=== PATIENT | male | born 1965 ===

== ENCOUNTER 2018-04-13 10:04 | Observation (INO) | payer OTHER ==
--- NOTE | 2018-04-13 10:46 | ED PDOC ---
HPI: Chest Pain Time Seen by Provider: 04/13/18 10:30 Chief Complaint (Nursing): Chest Pain History Per: Patient Onset/Duration Of Symptoms: Days (1) Current Symptoms Are (Timing): Still Present Severity: Mild Associated Symptoms: Nausea, Diaphoresis Additional Complaint(s): Chest pain with radiation to left shoulder assoc with nausea and diaphoresis this AM while going to bus. Denies SOB. Also had epigastric pain with reflux sxs.Denies vomiting Past Medical History Vital Signs: Last Vital Signs Temp 97 F L 04/13/18 10:18 Pulse 76 04/13/18 10:18 Resp 16 04/13/18 10:18 BP 148/76 04/13/18 10:18 Pulse Ox 99 04/13/18 12:38 - Medical History PMH: CAD, Diabetes - Family History Family History: States: Unknown Family Hx - Allergies Allergies/Adverse Reactions: Allergies Allergy/AdvReac Type Severity Reaction Status Date / Time No Known Allergies Allergy Verified 04/13/18 10:18 Review of Systems ROS Statement: Except As Marked, All Systems Reviewed And Found Negative Constitutional: Positive for: Sweats Cardiovascular: Positive for: Chest Pain Gastrointestinal: Positive for: Nausea, Abdominal Pain Physical Exam - Reviewed Nursing Documentation Reviewed: Yes Vital Signs Reviewed: Yes - Physical Exam Appears: Positive for: Non-toxic, No Acute Distress Head Exam: Positive for: ATRAUMATIC, NORMAL INSPECTION, NORMOCEPHALIC Skin: Positive for: Normal Color, Warm, DRY Eye Exam: Positive for: EOMI, Normal appearance, PERRL ENT: Positive for: Normal ENT Inspection Neck: Positive for: Normal, Painless ROM Cardiovascular/Chest: Positive for: Regular Rate, Rhythm Respiratory: Positive for: CNT, Normal Breath Sounds Gastrointestinal/Abdominal: Positive for: Normal Exam, Soft. Negative for: Tenderness Back: Positive for: Normal Inspection Extremity: Positive for: Normal ROM Neurologic/Psych: Positive for: Alert, Oriented - Laboratory Results Result Diagrams: 04/13/18 10:50 04/13/18 10:50 - ECG O2 Sat by Pulse Oximetry: 99 Disposition - Clinical Impression Clinical Impression: Chest pain - Patient ED Disposition Is Patient to be Admitted: Yes - Disposition Disposition Time: 12:46 Condition: FAIR Forms: [employer] (Malay) - Pt Status Changed To: Hospital Disposition Of: Observation - POA Present On Arrival: None
[2018-04-13 10:57] LABS: BASO % 0.2 % (0.0-2.0); EOS # 0.1 K/uL (0.0-0.7); EOS % 0.6 % (0.0-4.0); HEMOGLOBIN 16.1 g/dL (12.0-18.0); LYMPH # 0.5 K/uL (1.0-4.3); MEAN CELL VOLUME 89.9 fl (80.0-94.0); MEAN CORPUSCULAR HEMOGLOBIN 30.4 pg (27.0-31.0); MEAN CORPUSCULAR HGB CONC 33.8 g/dL (33.0-37.0); MEAN PLATELET VOLUME 8.5 fl (7.2-11.7); MONO # 0.6 K/uL (0.0-0.8); MONO % 4.4 % (0.0-10.0); NEUT # 11.5 K/uL (1.8-7.0); NEUT % 90.8 % (50.0-75.0); NRBC % 0.3 % (0.0-0.0); PLATELET COUNT 219 K/uL (130-400); RBC 5.31 Mil/uL (4.40-5.90); RED CELL DISTRIBUTION WIDTH 13.1 % (11.5-14.5); WHITE BLOOD COUNT 12.7 K/uL (4.8-10.8)
[2018-04-13 11:08] LABS: ALB/GLOB RATIO 1.2 (1.0-2.1); ALBUMIN 4.3 g/dL (3.5-5.0); ALT/SGPT 43 U/L (21-72); AST/SGOT 34 U/L (17-59); BLOOD UREA NITROGEN 25 mg/dl (9-20); CALCIUM 9.2 mg/dL (8.4-10.2); GFR NON-AFRICAN AMERICAN > 60
--- NOTE | 2018-04-13 11:12 | RAD ---
Date of service: 04/13/2018 HISTORY: Chest pain COMPARISON: No prior. TECHNIQUE: Chest PA and lateral FINDINGS: LUNGS: Poor inspiration with low lung volumes, crowded bronchovascular markings and minor bibasilar atelectasis. Mild biapical pleural thickening PLEURA: No significant pleural effusion identified. No pneumothorax apparent. CARDIOVASCULAR: Normal. OSSEOUS STRUCTURES: No significant abnormalities. VISUALIZED UPPER ABDOMEN: Normal. OTHER FINDINGS: None. IMPRESSION: Poor inspiration with low lung volumes, crowded bronchovascular markings and minor bibasilar atelectasis. The the the Mild biapical pleural thickening
[2018-04-13] MEDS ORDERED: Alum-Mag Hydrox-Simethicone Susp (30 mL) PO ONE (13:42)
[2018-04-13 14:00] LABS: LYMPHOCYTE 8 % (20-50); MONOCYTE 5 % (0-10); NEUTROPHIL 87 % (42-75); TOTAL CELLS COUNTED 100
[2018-04-13 14:01] LABS: PLATELET ESTIMATE NORMAL (NORMAL)
[2018-04-13] MEDS ORDERED: Pantoprazole 40 mg EC Tab PO ONE (14:08)
--- NOTE | 2018-04-13 14:08 | CP.PCM.HP ---
History of Present Illness - History of Present Illness History of Present Illness: CC: chest pain This is a 52 yo male with a past medical history significant for FL in 2007 ( admitted to [facility] in [place] at that time and did not have cath at this time), also with Type 2 DM on Metformin, hypercholesterolemia, presenting to the ED c/o 1 week of chest pain, substernal, feels like a pressure, radiating to the left shoulder and down the left arm, not radiating to the jaw, comes and goes, moderate in severity. 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 In the ED, the patient had a negative troponin and unremarkable EKG. Given his typical chest pain and history + for FL, the patient is being placed on tele obs to r/o FL. Of note he has a positive hx for GERD and had gastritis on upper endoscopy 6 years ago. Present on Admission - Present on Admission Any Indicators Present on Admission: No History of DVT/PE: No History of Uncontrolled Diabetes: No Review of Systems - Review of Systems Review of Systems: A 12 point review of systems was conducted and found to be negative other than what was mentioned in the HPI Past Patient History - Infectious Disease Hx of Infectious Diseases: None - Past Social History Smoking Status: Never Smoked - CARDIAC Hx Cardiac Disorders: Yes Hx Heart Attack: Yes Hx Hypercholesterolemia: Yes - PSYCHIATRIC Hx Substance Use: No Meds Allergies/Adverse Reactions: Allergies Allergy/AdvReac Type Severity Reaction Status Date / Time No Known Allergies Allergy Verified 04/13/18 10:18 Physical Exam - Additional Findings Additional findings: Physical exam: Constitutional- cooperative, awake, alert Head- NCAT, PERRL Eye- PERRL, EOMI, + conjunctival injection bilaterally ENT- normal exam, MMM. Neck- normal inspection, supple, no JVD Respiratory- CTAB, no wheezes rales rhonchi Cardiovascular- RRR, +S1, +S2 no MRG GI/Abdominal- normal bowel sounds, soft, no mass, no hsm Skin- warm, dry Extremities Exam- normal capillary refill, normal inspection Neurological Exam- alert, awake, oriented Psych- normal mood, normal affect Results - Vital Signs Recent Vital Signs: Last Vital Signs Temp 97 F L 04/13/18 10:18 Pulse 76 04/13/18 10:18 Resp 16 04/13/18 10:18 BP 148/76 04/13/18 10:18 Pulse Ox 99 04/13/18 12:47 - Labs Result Diagrams: 04/13/18 10:50 04/13/18 10:50 Labs: Laboratory Results - last 24 hr 04/13/18 04/13/18 04/13/18 10:23 10:50 10:50 WBC 12.7 H RBC 5.31 Hgb 16.1 Hct 47.8 MCV 89.9 MCH 30.4 MCHC 33.8 RDW 13.1 Plt Count 219 MPV 8.5 Neut % (Auto) 90.8 H Lymph % (Auto) 4.0 L [place] % (Auto) 4.4 Eos % (Auto) 0.6 Baso % (Auto) 0.2 Neut # (Auto) 11.5 H Lymph # (Auto) 0.5 L [place] # (Auto) 0.6 Eos # (Auto) 0.1 Baso # (Auto) 0.0 Neutrophils % (Manual) 87 H Lymphocytes % (Manual) 8 L Monocytes % (Manual) 5 Platelet Estimate Normal RBC Morphology Normal Sodium 138 Potassium 4.1 Chloride 108 H Carbon Dioxide 20 L Anion Gap 14 BUN 25 H Creatinine 1.0 Est GFR ( Amer) > 60 Est GFR (Non-Af Amer) > 60 POC Glucose (mg/dL) 136 H Random Glucose 153 H Calcium 9.2 Total Bilirubin 1.1 AST 34 ALT 43 Alkaline Phosphatase 78 Troponin I < 0.0120 Total Protein 7.8 Albumin 4.3 Globulin 3.6 Albumin/Globulin Ratio 1.2 Assessment & Plan - Assessment and Plan (Free Text) Plan: This is a 52 yo male with a past medical history significant for [place] in 2007 ( admitted to [facility] at that time and did not have cath at this time), also with Type 2 DM on Metformin, hypercholesterolemia, presenting to the ED c/o 1 week of chest pain, substernal, feels like a pressure, radiating to the left shoulder and down the left arm, not radiating to the jaw, comes and goes, moderate in severity. 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 In the ED, the patient had a negative troponin and unremarkable EKG. Given his typical chest pain and history + for FL, the patient is being placed on tele obs to r/o [place]. Of note he has a positive hx for GERD and had gastritis on upper endoscopy 6 years ago. 1) Typical chest pain, r/o ACS, also consider GERD as a cause - Place on tele/obs - Consultation with Dr. Devine, cardiology - F/u troponin trend - Lipid profile - HGA1C - Repeat EKG - Nitrostat PRN 2) Type 2 Diabetes mellitus - Hold Metformin - Lispro sliding scale with Accucheks AC+HS - HGA1C - Start low dose ACEI for renal and cardiac protection 3) Hypercholesterolemia - Continue Lipitor 4) GERD - Maalox PRN - Protonix 40 mg po daily 5) DVT prophylaxis - Heparin sq
[2018-04-13] MEDS ORDERED: Alum-Mag Hydrox-Simethicone Susp (30 mL) ONE (14:09)
[2018-04-13] MEDS: Pantoprazole 40 mg EC Tab PO SCH (14:10)
[2018-04-13 14:37] LABS: HDL CHOLESTEROL 59 MG/DL (30-70)
[2018-04-13 14:48] LABS: LDL CHOLESTEROL 100 mg/dL (0-129)
[2018-04-13] MEDS: Insulin Lispro (humaLOG) 100 Units/ml Inj SC SCH ×2 (17:05→23:05)
[2018-04-13 18:29] LABS: BARBITURATES, UR NEGATIVE (NEGATIVE); BENZODIAZEPINES, UR NEGATIVE (NEGATIVE); OPIATES, UR NEGATIVE (NEGATIVE); PHENCYCLIDINE, UR NEGATIVE (NEGATIVE)
[2018-04-14 05:03] VITALS: RESP 18
--- NOTE | 2018-04-14 08:09 | CP.PCM.CON ---
History of Present Illness - History of Present Illness History of Present Illness: 52 y/o male admitted with pains in both [place]pulders upper bilateral chest and back worse with movement of his arm and when he works Has had these pains x several weeks still goes to work with the pains No pains at present EKG: normal Sinus rhythm Troponin: neg PMH: NIDDM ? [place] 2007 No PMD Past Patient History - Infectious Disease Hx of Infectious Diseases: None - Past Medical History & Family History Past Medical History?: Yes - Past Social History Smoking Status: Former Smoker - CARDIAC Hx Cardiac Disorders: Yes (heart attack) Hx Heart Attack: Yes Hx Hypercholesterolemia: Yes - PULMONARY Hx Respiratory Disorders: No - NEUROLOGICAL Hx Neurological Disorder: No - HEENT Hx HEENT Problems: No Other/Comment: Left eye tumor - RENAL Hx Chronic Kidney Disease: No - ENDOCRINE/METABOLIC Hx Diabetes Mellitus Type 2: Yes - HEMATOLOGICAL/ONCOLOGICAL Hx Blood Disorders: No Hx AIDS: No Hx Human Immunodeficiency Virus (HIV): No - INTEGUMENTARY Hx Dermatological Problems: No - MUSCULOSKELETAL/RHEUMATOLOGICAL Hx Falls: No Hx Herniated Disk: Yes - GASTROINTESTINAL Hx Gastritis: Yes Hx Gastroesophageal Reflux: Yes Hx Hemorrhoids: Yes - GENITOURINARY/GYNECOLOGICAL Hx Genitourinary Disorders: No - PSYCHIATRIC Hx Psychophysiologic Disorder: No Hx Substance Use: No - SURGICAL HISTORY Hx Surgeries: Yes Other/Comment: Left arm sx - ANESTHESIA Hx Anesthesia: Yes Hx Anesthesia Reactions: No Hx Malignant Hyperthermia: No Has any member of the family had a problem w/ anesthesia?: No Meds Allergies/Adverse Reactions: Allergies Allergy/AdvReac Type Severity Reaction Status Date / Time No Known Allergies Allergy Verified 04/13/18 10:18 - Medications Medications: Current Medications Acetaminophen (Tylenol 325mg Tab) 650 mg PO Q6 PRN PRN Reason: Headache Last Admin: 04/13/18 17:59 Dose: 650 mg Aspirin (Aspirin) 325 mg PO DAILY [facility] Aspirin (Ecotrin) 81 mg PO DAILY [facility] Atorvastatin Calcium (Lipitor) 40 mg PO HS [facility]AL[facility] Last Admin: 04/13/18 23:05 Dose: 40 mg Heparin Sodium (Porcine) (Heparin) 5,000 units SC Q12 [facility] PRN Reason: Protocol Last Admin: 04/13/18 22:04 Dose: 5,000 units Insulin Human Lispro (Humalog) 0 units SC ACCU-CHECK [facility] PRN Reason: Protocol Last Admin: 04/13/18 23:05 Dose: Not Given Ketorolac Tromethamine (Toradol) 30 mg IVP Q6 PRN PRN Reason: Pain, moderate (4-7) Last Admin: 04/13/18 19:14 Dose: 30 mg Nitroglycerin (Nitrostat Sl Tab) 0.4 mg SL Q5M PRN PRN Reason: Pain, moderate (4-7) Last Admin: 04/13/18 19:10 Dose: 0.4 mg Ondansetron HCl (Zofran Odt) 4 mg PO Q8H PRN PRN Reason: Nausea/Vomiting Pantoprazole Sodium (Protonix Ec Tab) 40 mg PO DAILY [facility] Last Admin: 04/13/18 14:10 Dose: 40 mg Ranolazine (Ranexa) 500 mg PO BID [facility] Sitagliptin Phosphate (Januvia) 100 mg PO DAILY [facility] Results - Vital Signs Recent Vital Signs: Last Vital Signs Temp 98.2 F 04/14/18 05:02 Pulse 64 04/14/18 05:02 Resp 18 04/14/18 05:02 BP 120/67 04/14/18 05:02 Pulse Ox 99 04/14/18 05:02 - Labs Result Diagrams: 04/13/18 10:50 04/13/18 10:50 Labs: Laboratory Results - last 24 hr 04/13/18 04/13/18 04/13/18 10:23 10:50 10:50 WBC 12.7 H RBC 5.31 Hgb 16.1 Hct 47.8 MCV 89.9 MCH 30.4 MCHC 33.8 RDW 13.1 Plt Count 219 MPV 8.5 Neut % (Auto) 90.8 H Lymph % (Auto) 4.0 L [place] % (Auto) 4.4 Eos % (Auto) 0.6 Baso % (Auto) 0.2 Neut # (Auto) 11.5 H Lymph # (Auto) 0.5 L [place] # (Auto) 0.6 Eos # (Auto) 0.1 Baso # (Auto) 0.0 Neutrophils % (Manual) 87 H Lymphocytes % (Manual) 8 L Monocytes % (Manual) 5 Platelet Estimate Normal RBC Morphology Normal Sodium 138 Potassium 4.1 Chloride 108 H Carbon Dioxide 20 L Anion Gap 14 BUN 25 H Creatinine 1.0 Est GFR ( Amer) > 60 Est GFR (Non-Af Amer) > 60 POC Glucose (mg/dL) 136 H Random Glucose 153 H Hemoglobin A1c Calcium 9.2 Total Bilirubin 1.1 AST 34 ALT 43 Alkaline Phosphatase 78 Troponin I < 0.0120 Total Protein 7.8 Albumin 4.3 Globulin 3.6 Albumin/Globulin Ratio 1.2 Triglycerides Cholesterol LDL Cholesterol Direct HDL Cholesterol Urine Opiates Screen Urine Methadone Screen Ur Barbiturates Screen Ur Phencyclidine Scrn Ur Amphetamines Screen U Benzodiazepines Scrn U Oth Cocaine Metabols U Cannabinoids Screen 04/13/18 04/13/18 04/13/18 14:22 14:22 17:03 WBC RBC Hgb Hct MCV MCH MCHC RDW Plt Count MPV Neut % (Auto) Lymph % (Auto) [place] % (Auto) Eos % (Auto) Baso % (Auto) Neut # (Auto) Lymph # (Auto) [place] # (Auto) Eos # (Auto) Baso # (Auto) Neutrophils % (Manual) Lymphocytes % (Manual) Monocytes % (Manual) Platelet Estimate RBC Morphology Sodium Potassium Chloride Carbon Dioxide Anion Gap BUN Creatinine Est GFR ( Amer) Est GFR (Non-Af Amer) POC Glucose (mg/dL) 134 H Random Glucose Hemoglobin A1c 7.8 H Calcium Total Bilirubin AST ALT Alkaline Phosphatase Troponin I Total Protein Albumin Globulin Albumin/Globulin Ratio Triglycerides 138 Cholesterol 192 LDL Cholesterol Direct 100 HDL Cholesterol 59 Urine Opiates Screen Urine Methadone Screen Ur Barbiturates Screen Ur Phencyclidine Scrn Ur Amphetamines Screen U Benzodiazepines Scrn U Oth Cocaine Metabols U Cannabinoids Screen 04/13/18 04/13/18 04/13/18 17:48 21:24 22:02 WBC RBC Hgb Hct MCV MCH MCHC RDW Plt Count MPV Neut % (Auto) Lymph % (Auto) [place] % (Auto) Eos % (Auto) Baso % (Auto) Neut # (Auto) Lymph # (Auto) [place] # (Auto) Eos # (Auto) Baso # (Auto) Neutrophils % (Manual) Lymphocytes % (Manual) Monocytes % (Manual) Platelet Estimate RBC Morphology Sodium Potassium Chloride Carbon Dioxide Anion Gap BUN Creatinine Est GFR ( Amer) Est GFR (Non-Af Amer) POC Glucose (mg/dL) 109 Random Glucose Hemoglobin A1c Calcium Total Bilirubin AST ALT Alkaline Phosphatase Troponin I < 0.0120 Total Protein Albumin Globulin Albumin/Globulin Ratio Triglycerides Cholesterol LDL Cholesterol Direct HDL Cholesterol Urine Opiates Screen Negative Urine Methadone Screen Negative Ur Barbiturates Screen Negative Ur Phencyclidine Scrn Negative Ur Amphetamines Screen Negative U Benzodiazepines Scrn Negative U Oth Cocaine Metabols Negative U Cannabinoids Screen Negative 04/14/18 04/14/18 04:20 05:21 WBC RBC Hgb Hct MCV MCH MCHC RDW Plt Count MPV Neut % (Auto) Lymph % (Auto) [place] % (Auto) Eos % (Auto) Baso % (Auto) Neut # (Auto) Lymph # (Auto) [place] # (Auto) Eos # (Auto) Baso # (Auto) Neutrophils % (Manual) Lymphocytes % (Manual) Monocytes % (Manual) Platelet Estimate RBC Morphology Sodium Potassium Chloride Carbon Dioxide Anion Gap BUN Creatinine Est GFR ( Amer) Est GFR (Non-Af Amer) POC Glucose (mg/dL) 170 H Random Glucose Hemoglobin A1c Calcium Total Bilirubin AST ALT Alkaline Phosphatase Troponin I < 0.0120 Total Protein Albumin Globulin Albumin/Globulin Ratio Triglycerides Cholesterol LDL Cholesterol Direct HDL Cholesterol Urine Opiates Screen Urine Methadone Screen Ur Barbiturates Screen Ur Phencyclidine Scrn Ur Amphetamines Screen U Benzodiazepines Scrn U Oth Cocaine Metabols U Cannabinoids Screen Assessment & Plan (1) Chest pain Assessment and Plan: Pains appear to be non cardiac in origin I have ordered an echo pt can be discharged after the echo is done for f/u as out patient Status: Acute (2) Type 2 diabetes mellitus without complications Status: Acute
[2018-04-14] MEDS ORDERED: Ranolazine 500 mg Extended Release Tablets PO SCH (09:00)
[2018-04-14] MEDS: Pantoprazole 40 mg EC Tab PO SCH (09:32)
[2018-04-14] MEDS: Insulin Lispro (humaLOG) 100 Units/ml Inj SC SCH ×2 (09:33→12:04)
--- NOTE | 2018-04-14 09:36 | CARD ---
APPROVED REPORT Date of service: 04/13/2018 <Conclusion> Sinus rhythm with marked sinus arrhythmia Possible Left atrial enlargement Borderline ECG
[2018-04-14 12:14] VITALS: BP 123/74; PULSE 67; TEMP 98; O2SAT 97
[2018-04-14] MEDS ORDERED: Alum-Mag Hydrox-Simethicone Susp (30 mL) PO PRN (13:12)
--- NOTE | 2018-04-14 13:28 | CP.PCM.DIS ---
Provider - Provider Date of Admission: 04/13/18 12:37 Attending physician: Christopher Luna DO Primary care physician: Service Consults: Dr. Devine Time Spent in preparation of Discharge (in minutes): 15 Hospital Course - Lab Results Lab Results: Most Recent Lab Values WBC 12.7 K/uL (4.8-10.8) H 04/13/18 10:50 RBC 5.31 Mil/uL (4.40-5.90) 04/13/18 10:50 Hgb 16.1 g/dL (12.0-18.0) 04/13/18 10:50 Hct 47.8 % (35.0-51.0) 04/13/18 10:50 MCV 89.9 fl (80.0-94.0) 04/13/18 10:50 MCH 30.4 pg (27.0-31.0) 04/13/18 10:50 MCHC 33.8 g/dL (33.0-37.0) 04/13/18 10:50 RDW 13.1 % (11.5-14.5) 04/13/18 10:50 Plt Count 219 K/uL (130-400) 04/13/18 10:50 MPV 8.5 fl (7.2-11.7) 04/13/18 10:50 Neut % (Auto) 90.8 % (50.0-75.0) H 04/13/18 10:50 Lymph % (Auto) 4.0 % (20.0-40.0) L 04/13/18 10:50 [place] % (Auto) 4.4 % (0.0-10.0) 04/13/18 10:50 Eos % (Auto) 0.6 % (0.0-4.0) 04/13/18 10:50 Baso % (Auto) 0.2 % (0.0-2.0) 04/13/18 10:50 Neut # (Auto) 11.5 K/uL (1.8-7.0) H 04/13/18 10:50 Lymph # (Auto) 0.5 K/uL (1.0-4.3) L 04/13/18 10:50 [place] # (Auto) 0.6 K/uL (0.0-0.8) 04/13/18 10:50 Eos # (Auto) 0.1 K/uL (0.0-0.7) 04/13/18 10:50 Baso # (Auto) 0.0 K/uL (0.0-0.2) 04/13/18 10:50 Neutrophils % (Manual) 87 % (42-75) H 04/13/18 10:50 Lymphocytes % (Manual) 8 % (20-50) L 04/13/18 10:50 Monocytes % (Manual) 5 % (0-10) 04/13/18 10:50 Platelet Estimate Normal (NORMAL) 04/13/18 10:50 RBC Morphology Normal (NORMAL) 04/13/18 10:50 Sodium 138 mmol/l (132-148) 04/13/18 10:50 Potassium 4.1 MMOL/L (3.6-5.0) 04/13/18 10:50 Chloride 108 mmol/L (98-107) H 04/13/18 10:50 Carbon Dioxide 20 mmol/L (22-30) L 04/13/18 10:50 Anion Gap 14 (10-20) 04/13/18 10:50 BUN 25 mg/dl (9-20) H 04/13/18 10:50 Creatinine 1.0 mg/dl (0.8-1.5) 04/13/18 10:50 Est GFR ( Amer) > 60 04/13/18 10:50 Est GFR (Non-Af Amer) > 60 04/13/18 10:50 POC Glucose (mg/dL) 140 mg/dL (65-110) H 04/14/18 10:56 Random Glucose 153 mg/dL (75-110) H 04/13/18 10:50 Hemoglobin A1c 7.8 % (4.2-6.5) H 04/13/18 14:22 Calcium 9.2 mg/dL (8.4-10.2) 04/13/18 10:50 Total Bilirubin 1.1 mg/dl (0.2-1.3) 04/13/18 10:50 AST 34 U/L (17-59) 04/13/18 10:50 ALT 43 U/L (21-72) 04/13/18 10:50 Alkaline Phosphatase 78 U/L (38-126) 04/13/18 10:50 Troponin I < 0.0120 ng/mL (0.00-0.120) 04/14/18 04:20 Total Protein 7.8 G/DL (6.3-8.2) 04/13/18 10:50 Albumin 4.3 g/dL (3.5-5.0) 04/13/18 10:50 Globulin 3.6 gm/dL (2.2-3.9) 04/13/18 10:50 Albumin/Globulin Ratio 1.2 (1.0-2.1) 04/13/18 10:50 Triglycerides 138 mg/DL (0-149) 04/13/18 14:22 Cholesterol 192 mg/dL (0-199) 04/13/18 14:22 LDL Cholesterol Direct 100 mg/dL (0-129) 04/13/18 14:22 HDL Cholesterol 59 MG/DL (30-70) 04/13/18 14:22 Urine Opiates Screen Negative (NEGATIVE) 04/13/18 17:48 Urine Methadone Screen Negative (NEGATIVE) 04/13/18 17:48 Ur Barbiturates Screen Negative (NEGATIVE) 04/13/18 17:48 Ur Phencyclidine Scrn Negative (NEGATIVE) 04/13/18 17:48 Ur Amphetamines Screen Negative (NEGATIVE) 04/13/18 17:48 U Benzodiazepines Scrn Negative (NEGATIVE) 04/13/18 17:48 U Oth Cocaine Metabols Negative (NEGATIVE) 04/13/18 17:48 U Cannabinoids Screen Negative (NEGATIVE) 04/13/18 17:48 - Hospital Course Hospital Course: This is a 52 yo male with a past medical history significant for [place] in 2007 ( admitted to [facility] at that time and did not have cath at this time), also with Type 2 DM on Metformin, hypercholesterolemia, presenting to the ED c/o 1 week of chest pain, substernal, feels like a pressure, radiating to the left shoulder and down the left arm, not radiating to the jaw, comes and goes, moderate in severity. 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 In the ED, the patient had a negative troponin and unremarkable EKG. Given his typical chest pain and history + for [place], the patient is being placed on tele obs to r/o DC. Of note he has a positive hx for GERD and had gastritis on upper endoscopy 6 years ago. 1) Chest pain, ACS ruled out, likely GERD given his hx - no acute events on tele - ok for discharge today; patient to f/u with primary MD and cardiology - Consultation with Dr. Devine, cardiology - Troponin negative x 3 - Echo performed, pt to follow up with results as per cardiology 2) Type 2 Diabetes mellitus - Continue Metformin and added Januvia given his hyperglycemia as outpatient - HGA1C 7.8 3) Hypercholesterolemia - Continue Lipitor 4) GERD - Maalox PRN - Protonix 40 mg po daily 5) DVT prophylaxis - Heparin sq while in house Discharge Exam - Head Exam Head Exam: ATRAUMATIC, NORMAL INSPECTION, NORMOCEPHALIC - Additional Findings Additional findings: Physical exam: Constitutional- cooperative, awake, alert Head- NCAT, PERRL Eye- PERRL, EOMI ENT- normal exam, MMM. Neck- normal inspection, supple, no JVD Respiratory- CTAB, no wheezes rales rhonchi Cardiovascular- RRR, +S1, +S2 no MRG GI/Abdominal- normal bowel sounds, soft, no mass, no hsm Skin- warm, dry Extremities Exam- normal capillary refill, normal inspection Neurological Exam- alert, awake, oriented Psych- normal mood, normal affect Discharge Plan - Discharge Medications Prescriptions: Aluminum Hydroxide/Magnesium [Maalox Plus 30 ml] 30 ml PO Q6 PRN #1 bottle PRN Reason: Indigestion / Heartburn Atorvastatin [Lipitor] 40 mg PO HS #30 tab metFORMIN [glucOPHAGE] 850 mg PO BID #60 tab Pantoprazole [Protonix EC Tab] 40 mg PO DAILY #30 ect SITagliptin [Januvia] 100 mg PO DAILY #30 tab - Follow Up Plan Condition: FAIR Disposition: HOME/ ROUTINE
--- NOTE | 2018-04-14 17:55 | CARD ---
APPROVED REPORT Date of service: 04/14/2018 EXAM: Two-dimensional and M-mode echocardiogram with Doppler and color Doppler. Other Information Quality : GoodRhythm : NSR INDICATION Chest Pain 2D DIMENSIONS IVSd1.10 (0.7-1.1cm)LVDd4.38 (3.9-5.9cm) LVOT Diameter2.18 (1.8-2.4cm)PWd1.05 (0.7-1.1cm) IVSs1.65 (0.8-1.2cm)LVDs2.60 (2.5-4.0cm) FS (%) 40.6 %PWs1.59 (0.8-1.2cm) M-Mode DIMENSIONS Left Atrium (MM)3.79 (2.5-4.0cm)IVSd1.15 (0.7-1.1cm) Aortic Root3.53 (2.2-3.7cm)LVDd4.71 (4.0-5.6cm) Aortic Cusp Exc.2.06 (1.5-2.0cm)PWd1.12 (0.7-1.1cm) IVSs1.62 cmFS (%) 39 % LVDs2.85 (2.0-3.8cm)PWs1.56 cm Aortic Valve AoV Peak Vqpiveqt320.0cm/sAoV VTI25.2cmAO Peak GR.7mmHg LVOT Peak Qovjlljg867.2cm/sLVOT VTI18.70cmAO Mean GR.4mmHg Mitral Valve MV E Vxhvdiev24.9cm/sMV DECEL [id number] A Solslsad06.2cm/s MV [id number]/A ratio1.2MVA (PHT)5.38cm2 TDI Lateral E' Peak V12.06cm/sMedial E' Peak V8.64cm/sE/Lateral E'5.7 E/Medial E'8.0 Pulmonary Valve PV Peak Pypjjqfx77.0cm/s LEFT VENTRICLE The left ventricle is normal size. There is normal left ventricular wall thickness. The left ventricular ejection fraction is within the normal range. The Ejection Fraction is 55%. No regional wall motion abnormalities noted.. The left ventricular diastolic function is normal. No left ventricle thrombus noted on this study. There is no ventricular septal defect visualized. There is no mass noted in the left ventricle. RIGHT VENTRICLE The right ventricle is normal size. There is normal right ventricular wall thickness. The right ventricular systolic function is normal. ATRIA The left atrium size is normal. The right atrium size is normal. The interatrial septum is intact with no evidence for an atrial septal defect. AORTIC VALVE The aortic valve is normal in structure. No aortic regurgitation is present. There is no aortic valvular stenosis. MITRAL VALVE The mitral valve is normal in structure. There is no mitral valve stenosis. There is trivial mitral valve regurgitation noted. TRICUSPID VALVE The tricuspid valve is normal in structure. There is no tricuspid valve regurgitation noted. PULMONIC VALVE The pulmonary valve is normal in structure. There is no pulmonic valvular regurgitation. GREAT VESSELS The aortic root is normal in size. The ascending aorta is normal in size. The pulmonary artery is normal. The IVC is normal in size and collapses >50% with inspiration. PERICARDIAL EFFUSION There is no pericardial effusion. <Conclusion> Essentially normal transthoracic echocardiogram. The Ejection Fraction is 55%.
== END 2018-04-14 14:41 | disposition home or self-care (01) ==
LOC: H.ER 10:04 → H.ERHOLD 12:37 → H.TEL 18:51
PROVIDERS: ADMIT Internal Medicine; ATTEND Internal Medicine
DX: K21.9 Gastro-esophageal reflux disease without esophagitis (principal); Z87.891 Personal history of nicotine dependence; K29.70 Gastritis, unspecified, without bleeding; R07.2 Precordial pain; Z79.84 Long term (current) use of oral hypoglycemic drugs; E78.00 Pure hypercholesterolemia, unspecified; I25.10 Atherosclerotic heart disease of native coronary artery without angina pectoris; I25.2 Old myocardial infarction
CPT/HCPCS: 36415; 71046; 80053; 80061; 80324; 80345; 80346; 80349; 80353; 80358; 80361; 82948; 83036; 83992; 84484; 85025; 93005; 93306; 99285; G0378; J1644; J1885

== ENCOUNTER 2018-08-14 16:55 | Emergency (ER) | payer SELFPAY ==
[2018-08-14 16:55] VITALS: BMI 25.1
[2018-08-14 18:08] VITALS: RESP 18; O2SAT 99
[2018-08-14] MEDS ORDERED: Sodium Chloride 0.9% 1,000 ML IV STA ×2 (18:22→20:23)
--- NOTE | 2018-08-14 19:00 | ED PDOC ---
HPI: Abdomen Time Seen by Provider: 08/14/18 18:13 Chief Complaint (Nursing): GI Problem Chief Complaint (Provider): Abd Pain History Per: Patient History/Exam Limitations: no limitations Onset/Duration Of Symptoms: Days (x4) Outside of [place] travel?: Yes Other Location:: [place] Current Symptoms Are (Timing): Still Present Context: Travel Additional Complaint(s): The pt is a 53 y/o male with a PMHx of HTN, CAD, and DM, who presents to the ED for evaluation of abd pain and cramping with diarrhea. The pt reports the onset of the pain began following his return trip from [facility] on 08/10/18, in which, he admits to drinking the tap water. Since, he has had small amounts of blood in stool, which was resolved, and has felt dehydrated. The pt denies experiencing vomiting, fever, dizziness, or headaches. Of note, pt reports Hx of RI in the past. PCP: [facility] Past Medical History Reviewed: Historical Data, Nursing Documentation, Vital Signs Vital Signs: Last Vital Signs Temp 98.5 F 08/14/18 18:06 Pulse 69 08/14/18 18:06 Resp 18 08/14/18 18:06 BP 111/78 08/14/18 18:06 Pulse Ox 99 08/14/18 18:06 MAGGIE Report Viewed: Yes - Medical History PMH: CAD, Diabetes, Gastritis, HTN, Hypercholesterolemia Denies: HIV, Chronic Kidney Disease - Surgical History Surgical History: No Surg Hx - Family History Family History: States: Unknown Family Hx - Social History Drugs: Denies - Home Medications Home Medications: Ambulatory Orders Medication Instructions Recorded Aluminum Hydroxide/Magnesium 30 ml PO Q6 PRN #1 bottle 04/14/18 [Maalox Plus 30 ml] Atorvastatin [Lipitor] 40 mg PO HS #30 tab 04/14/18 Pantoprazole [Protonix EC Tab] 40 mg PO DAILY #30 ect 04/14/18 SITagliptin [Januvia] 100 mg PO DAILY #30 tab 04/14/18 metFORMIN [glucOPHAGE] 850 mg PO BID #60 tab 04/14/18 - Allergies Allergies/Adverse Reactions: Allergies Allergy/AdvReac Type Severity Reaction Status Date / Time No Known Allergies Allergy Verified 08/14/18 18:06 Review of Systems ROS Statement: Except As Marked, All Systems Reviewed And Found Negative Constitutional: Positive for: Other (Dehydrated). Negative for: Fever Gastrointestinal: Positive for: Abdominal Pain (Cramps), Diarrhea, Hematochezia. Negative for: Vomiting Neurological: Negative for: Headache, Dizziness Physical Exam - Reviewed Nursing Documentation Reviewed: Yes Vital Signs Reviewed: Yes - Physical Exam Appears: Positive for: No Acute Distress Head Exam: Positive for: ATRAUMATIC, NORMAL INSPECTION, NORMOCEPHALIC Skin: Positive for: Dry (dehydrated) Eye Exam: Positive for: Normal appearance ENT: Positive for: Normal ENT Inspection Neck: Positive for: Normal Cardiovascular/Chest: Positive for: Regular Rate, Rhythm Respiratory: Positive for: Normal Breath Sounds Gastrointestinal/Abdominal: Positive for: Soft, Distended. Negative for: Tenderness Extremity: Positive for: Normal ROM (Upper/Lower) Neurologic/Psych: Positive for: Alert, Oriented - Laboratory Results Result Diagrams: 08/14/18 18:45 08/14/18 18:45 - ECG O2 Sat by Pulse Oximetry: 99 Medical Decision Making Medical Decision Making: Time: 1821 Impression: likely, traveler's diarrhea Plan: - Labs - Bentyl 10 mg PO - IV Fluids - Ova and Parasite - Stool Culture - C Diff Toxin A B - UA Time: 1899 --Patient is endorsed to Dr. Sesay, pending labs and re-evaluation. Scribe Attestation: Documented by Lincoln Stokes, acting as a scribe for Adonay Naik III, DO. Provider Scribe Attestation: All medical record entries made by the Scribe were at my direction and personally dictated by me. I have reviewed the chart and agree that the record accurately reflects my personal performance of the history, physical exam, medical decision making, and the department course for this patient. I have also personally directed, reviewed, and agree with the discharge instructions and disposition. Disposition - Disposition Forms: Meeps (Sami)
[2018-08-14 19:43] LABS: BASO # 0.1 K/uL (0.0-0.2); EOS # 0.1 K/uL (0.0-0.7); EOS % 1.1 % (0.0-4.0); HEMOGLOBIN 16.2 g/dL (12.0-18.0); LYMPH # 2.4 K/uL (1.0-4.3); LYMPH % 25.2 % (20.0-40.0); MEAN CELL VOLUME 90.6 fl (80.0-94.0); MEAN CORPUSCULAR HEMOGLOBIN 30.4 pg (27.0-31.0); MEAN CORPUSCULAR HGB CONC 33.6 g/dL (33.0-37.0); MEAN PLATELET VOLUME 8.3 fl (7.2-11.7); MONO # 1.1 K/uL (0.0-0.8); NEUT # 5.7 K/uL (1.8-7.0); NEUT % 60.7 % (50.0-75.0); NRBC % 0.2 % (0.0-0.0); RBC 5.33 Mil/uL (4.40-5.90); RED CELL DISTRIBUTION WIDTH 13.4 % (11.5-14.5); WHITE BLOOD COUNT 9.4 K/uL (4.8-10.8)
--- NOTE | 2018-08-14 19:50 | ED PDOC ---
- Laboratory Results Result Diagrams: 08/14/18 18:45 08/14/18 18:45 - ECG O2 Sat by Pulse Oximetry: 99 Medical Decision Making Medical Decision Making: Time: 1899 --Patient endorsed to provider by Dr. Naik. Patient presents with several days of diarrhea with recent travel to [facility]. Upon evaluation during endorsement, patient reports feeling dehydrated with recent weight loss. Pending labs. Will obtain stool culture if possible. Patient is receiving IV fluids. If (-) gross abnormality, plan to discharge patient with Rx for Cipro with PCP follow-up recommended. 21:45 Pt with normal labs. UA unremarkable. Stool culture negative. Pt to be discharged home with rx for ciproflagyl and will follow up with PMD. Return parameters discussed. --- Scribe Attestation: Documented by Bianka Ritchie, acting as a scribe for Dr. Gris Sesay. Provider Scribe Attestation: All medical record entries made by the Scribe were at my direction and personally dictated by me. I have reviewed the chart and agree that the record accurately reflects my personal performance of the history, physical exam, medical decision making, and the department course for this patient. I have also personally directed, reviewed, and agree with the discharge instructions and disposition. Disposition - Clinical Impression Clinical Impression: Travelers' diarrhea - Disposition Condition: IMPROVED Additional Instructions: Take medications as prescribed. Follow up with primary medical doctor in 3 to 5 days. Return to the emergency department if symptoms worsen or if new symptoms develop. Prescriptions: Ciprofloxacin 500 mg PO BID #10 ml Metronidazole [Flagyl] 500 mg PO BID #10 tablet Instructions: Diarrhea and Traveler's Diarrhea, Adult (DC) Forms: [employer] (Tamazight) Print Language: TURKISH
[2018-08-14 20:01] LABS: ALB/GLOB RATIO 1.1 (1.0-2.1); ALBUMIN 4.3 g/dL (3.5-5.0); ALT/SGPT 35 U/L (21-72); AST/SGOT 27 U/L (17-59); BLOOD UREA NITROGEN 17 mg/dl (9-20); CALCIUM 9.8 mg/dL (8.4-10.2); GFR NON-AFRICAN AMERICAN > 60; LIPASE 147 U/L (23-300)
[2018-08-14 20:35] LABS: URINE BILIRUBIN NEGATIVE (NEGATIVE); URINE BLOOD NEGATIVE (NEGATIVE); URINE CLARITY CLEAR (Clear); URINE COLOR STRAW (YELLOW); URINE GLUCOSE (UA) NEG (NEGATIVE); URINE LEUKOCYTE ESTERASE NEG Leu/uL (Negative); URINE PROTEIN NEGATIVE (NEGATIVE); URINE UROBILINOGEN 0.2-1.0 mg/dL (0.2-1.0)
[2018-08-14 22:17] VITALS: BP 142/78; PULSE 78; TEMP 98.3
== END 2018-08-14 22:15 | disposition home or self-care (01) ==
LOC: H.ER 16:55
DX: R19.7 Diarrhea, unspecified (principal); E11.9 Type 2 diabetes mellitus without complications; E78.00 Pure hypercholesterolemia, unspecified; I10 Essential (primary) hypertension; I25.10 Atherosclerotic heart disease of native coronary artery without angina pectoris; Z79.84 Long term (current) use of oral hypoglycemic drugs
CPT/HCPCS: 80053; 81003; 83690; 83735; 84100; 85025; 87045; 87177; 87209; 87230; 96360; 96361; 99284; J7030

== ENCOUNTER 2018-09-07 11:37 | Emergency (ER) | payer SELFPAY ==
[2018-09-07 11:37] VITALS: BMI 25.1
--- NOTE | 2018-09-07 13:32 | ED PDOC ---
Lower Extremity Pain/Injury Time Seen by Provider: 09/07/18 12:06 Chief Complaint (Nursing): Lower Extremity Problem/Injury Chief Complaint (Provider): Lower Extremity Problem/Injury History Per: Patient History/Exam Limitations: no limitations Onset/Duration Of Symptoms: Days (x14) Current Symptoms Are (Timing): Still Present Additional Complaint(s): Patient is a 53 y/o male with a PMHX of DM, CAD, CVA, HTN, gastritis, and hypercholesterolemia who presents to the ED for evaluation of bilateral foot pain for the past two weeks. Patient claims to have constant pain on the sole of his feet. Patient scales the severity of his pain as an 8/10. Patient states the pain worsens when he walks. 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 Patient denies CP, SOB, fever, leg swelling, difficulty breathing, and weakness or numbness. PCP: [facility] Past Medical History Reviewed: Historical Data, Nursing Documentation, Vital Signs Vital Signs: Last Vital Signs Temp 98.1 F 09/07/18 11:47 Pulse 62 09/07/18 11:47 Resp 15 09/07/18 11:47 BP 143/82 09/07/18 11:47 Pulse Ox 100 09/07/18 11:47 - Medical History PMH: CAD, CVA, Diabetes, Gastritis, HTN, Hypercholesterolemia Denies: HIV, Chronic Kidney Disease - Surgical History Surgical History: No Surg Hx - Family History Family History: States: Unknown Family Hx - Immunization History Hx Tetanus Toxoid Vaccination: Yes Hx Influenza Vaccination: No Hx Pneumococcal Vaccination: No - Home Medications Home Medications: Ambulatory Orders Medication Instructions Recorded Aluminum Hydroxide/Magnesium 30 ml PO Q6 PRN #1 bottle 04/14/18 [Maalox Plus 30 ml] Atorvastatin [Lipitor] 40 mg PO HS #30 tab 04/14/18 Pantoprazole [Protonix EC Tab] 40 mg PO DAILY #30 ect 04/14/18 SITagliptin [Januvia] 100 mg PO DAILY #30 tab 04/14/18 metFORMIN [glucOPHAGE] 850 mg PO BID #60 tab 04/14/18 Ciprofloxacin 500 mg PO BID #10 ml 08/14/18 Metronidazole [Flagyl] 500 mg PO BID #10 tablet 08/14/18 Naproxen 500 mg PO BID #30 tab 09/07/18 - Allergies Allergies/Adverse Reactions: Allergies Allergy/AdvReac Type Severity Reaction Status Date / Time No Known Allergies Allergy Verified 08/14/18 18:06 Review of Systems ROS Statement: Except As Marked, All Systems Reviewed And Found Negative Constitutional: Negative for: Fever Cardiovascular: Negative for: Chest Pain Respiratory: Negative for: Shortness of Breath Musculoskeletal: Positive for: Foot Pain. Negative for: Leg Pain (or swelling) Neurological: Negative for: Weakness, Numbness Physical Exam - Reviewed Nursing Documentation Reviewed: Yes Vital Signs Reviewed: Yes - Physical Exam Appears: Positive for: Non-toxic, No Acute Distress Head Exam: Positive for: ATRAUMATIC, NORMAL INSPECTION, NORMOCEPHALIC Skin: Positive for: Normal Color, Warm, Dry Eye Exam: Positive for: EOMI, Normal appearance, PERRL Neck: Positive for: Normal, Painless ROM, Supple Cardiovascular/Chest: Positive for: Regular Rate, Rhythm. Negative for: Murmur Respiratory: Positive for: Normal Breath Sounds. Negative for: Respiratory Distress Back: Positive for: Normal Inspection. Negative for: L CVA Tenderness, R CVA Tenderness, Vertebral Tenderness Extremity: Positive for: Normal ROM. Negative for: Pedal Edema, Deformity, Other (Focal Exam: Normal Feet) Neurologic/Psych: Positive for: Alert, Oriented. Negative for: Motor/Sensory Deficits - ECG O2 Sat by Pulse Oximetry: 100 (RA) Pulse Ox Interpretation: Normal - Progress Re-evaluation Time: 14:07 Condition: Re-examined, Improved Medical Decision Making Medical Decision Making: Time: 1238 Impression: Bilateral Foot Pain DDx includes but not limited to plantar fasciitis and diabetic nueropathy. Plan: Glucose, POC Toradol 30 mg IM Patient instructed to wear shoes with appropriate supports. Followup with podiatry. --------- Scribe Attestation: Documented by Lincoln Stokes, acting as a scribe for Jorge Luis Parson MD. Provider Scribe Attestation: All medical record entries made by the Scribe were at my direction and personally dictated by me. I have reviewed the chart and agree that the record accurately reflects my personal performance of the history, physical exam, medical decision making, and the department course for this patient. I have also personally directed, reviewed, and agree with the discharge instructions and disposition. Disposition - Clinical Impression Clinical Impression: Pain in both feet - Patient ED Disposition Is Patient to be Admitted: No Doctor Will See Patient In The: Office Counseled Patient/Family Regarding: Studies Performed, Diagnosis, Need For Followup - Disposition Referrals: [facility] [Outside] Podiatry Clinic [Outside] Disposition: Routine/Home Disposition Time: 14:11 Condition: GOOD Additional Instructions: MILDRED THIBODEAUX, thank you for letting us take care of you today. Your provider was Jorge Luis Parson MD and you were treated for B/L FOOT PAIN. The emergency medical care you received today was directed at your acute symptoms. If you were prescribed any medication, please fill it and take as directed. It may take several days for your symptoms to resolve. Return to the Emergency Department if your symptoms worsen, do not improve, or if you have any other problems. Please contact your doctor or call one of the physicians/clinics you have been referred to that are listed on the Patient Visit Information form that is included in your discharge packet. Bring any paperwork you were given at discharge with you along with any medications you are taking to your follow up visit. Our treatment cannot replace ongoing medical care by a primary care pr ovider outside of the emergency department. [facility]. If you had an X-Ray or CT scan: A Radiologist will review the ED reading if any change in treatment is needed we will contact you. If you had a blood, urine, or wound culture: It will take several days for the results, if any change in treatment is needed we will contact you. If you had an STI test: It will take 48 hours for the results. Please call after 1 week if you have not heard back. Prescriptions: Naproxen 500 mg PO BID #30 tab Instructions: Heel Pain (Caused by Plantar Fasciitis) Print Language: GREENLANDIC
[2018-09-07 14:23] VITALS: BP 135/78; PULSE 77; RESP 20; TEMP 98.8; O2SAT 97
== END 2018-09-07 14:22 | disposition home or self-care (01) ==
LOC: H.ER 11:37
DX: M79.673 Pain in unspecified foot (principal)
CPT/HCPCS: 82948; 96372; 99284; J1885

== ENCOUNTER 2018-12-04 22:28 | Emergency (ER) | payer SELFPAY ==
[2018-12-04 22:29] VITALS: BMI 25.1
[2018-12-04 23:08] VITALS: BP 141/74; RESP 17; TEMP 98; O2SAT 98
--- NOTE | 2018-12-05 01:26 | ED PDOC ---
History of Present Illness History of Present Illness: 53 y/o male with a PMHx of HTN and DM presents to the ED for evaluation of diffuse body aches associated with a mild cough and chest pain. Patient reports his is currently being evaluated in the ER for asthma exacerbation. Otherwise, patient denies fever. Patient notes of taking Motrin for pain yesterday. PMD: no provider HPI: Influenza Time Seen by Provider: 12/05/18 00:31 Chief Complaint: Flu-like Symptoms Chief Complaint (Provider): Flu-like Symptoms History Per: Patient Exam Limitations: no limitations Onset/Duration Of Symptoms: Days Sick Contacts (Context): Family Member(s) ( with asthma exacerbation) Past Medical History Reviewed: Historical Data, Nursing Documentation, Vital Signs Vital Signs: Last Vital Signs Temp 98 F 12/04/18 23:05 Pulse 63 12/04/18 23:05 Resp 17 12/04/18 23:05 BP 141/74 12/04/18 23:05 Pulse Ox 98 12/04/18 23:05 - Medical History PMH: CAD, CVA, Diabetes, Gastritis, HTN, Hypercholesterolemia Denies: HIV, Chronic Kidney Disease - Surgical History Surgical History: No Surg Hx - Family History Family History: States: Unknown Family Hx - Immunization History Hx Tetanus Toxoid Vaccination: Yes Hx Influenza Vaccination: No Hx Pneumococcal Vaccination: No - Home Medications Home Medications: Ambulatory Orders Medication Instructions Recorded Aluminum Hydroxide/Magnesium 30 ml PO Q6 PRN #1 bottle 04/14/18 [Maalox Plus 30 ml] Atorvastatin [Lipitor] 40 mg PO HS #30 tab 04/14/18 Pantoprazole [Protonix EC Tab] 40 mg PO DAILY #30 ect 04/14/18 SITagliptin [Januvia] 100 mg PO DAILY #30 tab 04/14/18 metFORMIN [glucOPHAGE] 850 mg PO BID #60 tab 04/14/18 Ciprofloxacin 500 mg PO BID #10 ml 08/14/18 Metronidazole [Flagyl] 500 mg PO BID #10 tablet 08/14/18 Naproxen 500 mg PO BID #30 tab 12/05/18 - Allergies Allergies/Adverse Reactions: Allergies Allergy/AdvReac Type Severity Reaction Status Date / Time No Known Allergies Allergy Verified 12/04/18 23:07 Review of Systems ROS Statement: Except As Marked, All Systems Reviewed And Found Negative Constitutional: Positive for: Other (diffuse myalgia). Negative for: Fever Cardiovascular: Positive for: Chest Pain Respiratory: Positive for: Cough (mild) Physical Exam - Reviewed Nursing Documentation Reviewed: Yes Vital Signs Reviewed: Yes - Physical Exam Appears: Positive for: No Acute Distress Head Exam: Positive for: ATRAUMATIC, NORMOCEPHALIC Skin: Positive for: Normal Color, Warm, Dry Eye Exam: Positive for: Normal appearance, EOMI, PERRL Neck: Positive for: Normal, Painless ROM, Supple Cardiovascular/Chest: Positive for: Regular Rate, Rhythm. Negative for: Murmur Respiratory: Positive for: Normal Breath Sounds. Negative for: Respiratory Distress Gastrointestinal/Abdominal: Positive for: Normal Exam, Soft. Negative for: Tenderness Extremity: Positive for: Normal ROM. Negative for: Deformity Neurological/Psych: Positive for: Awake, Alert, Oriented (x3). Negative for: Motor/Sensory Deficits Medical Decision Making Medical Decision Making: Time: 104 Impression: Flu-like symptoms Rule out pneumonia Plan: -- EKG -- CXR Two Views -- Toradol 30 mg IM -- Accucheck -- Influenza A B Scribe Attestation: Documented by Reyes Locke, acting as a scribe Monalisa Parson MD. Provider Scribe Attestation: All medical record entries made by the Scribe were at my direction and personally dictated by me. I have reviewed the chart and agree that the record accurately reflects my personal performance of the history, physical exam, medical decision making, and the department course for this patient. I have also personally directed, reviewed, and agree with the discharge instructions and disposition. - ECG ECG Rhythm: Positive for: Sinus Bradycardia. Negative for: ST/T Changes Rate: 49 O2 Sat by Pulse Oximetry: 98 (RA) Pulse Ox Interpretation: Normal - Radiology X-Ray: Interpreted by Me, Viewed By Me X-Ray Interpretation: No Acute Disease - Progress Re-evaluation Time: 03:23 Condition: Re-examined, Improved Disposition - Clinical Impression Clinical Impression: Influenza-like symptoms - Patient ED Disposition Is Patient to be Admitted: No Doctor Will See Patient In The: Office Counseled Patient/Family Regarding: Studies Performed, Diagnosis, Need For Followup - Disposition Disposition: Routine/Home Disposition Time: 03:23 Condition: GOOD Additional Instructions: MILDRED THIBODEAUX, thank you for letting us take care of you today. Your provider was Jorge Luis Parson MD and you were treated for BODY ACHE. The emergency medical care you received today was directed at your acute symptoms. If you were prescribed any medication, please fill it and take as directed. It may take several days for your symptoms to resolve. Return to the Emergency Department if your symptoms worsen, do not improve, or if you have any other problems. Please contact your doctor or call one of the physicians/clinics you have been referred to that are listed on the Patient Visit Information form that is included in your discharge packet. Bring any paperwork you were given at discharge with you along with any medications you are taking to your follow up visit. Our treatment cannot replace ongoing medical care by a primary care provider outside of the emergency department. Thank you for allowing the [facility] team to be part of your care today. If you had an X-Ray or CT scan: A Radiologist will review the ED reading if any change in treatment is needed we will contact you. Prescriptions: Naproxen 500 mg PO BID #30 tab Instructions: Viral Upper Respiratory Infection, Adult (DC) Print Language: TURKS AND [place] ISLANDER
[2018-12-05 01:40] VITALS: PULSE 49
--- NOTE | 2018-12-05 09:06 | RAD ---
Date of service: 12/05/2018 HISTORY: chest pain COMPARISON: 04/13/2018 TECHNIQUE: Chest PA and lateral views FINDINGS: LUNGS: No active pulmonary disease. PLEURA: No significant pleural effusion identified. No pneumothorax apparent. CARDIOVASCULAR: No aortic atherosclerotic calcification present. Normal cardiac size. No pulmonary vascular congestion. OSSEOUS STRUCTURES: No significant abnormalities. VISUALIZED UPPER ABDOMEN: Normal. OTHER FINDINGS: None. IMPRESSION: No active disease.
--- NOTE | 2018-12-05 09:23 | CARD ---
APPROVED REPORT Date of service: 12/05/2018 EKG Measurement Heart [id number] [id number] <Conclusion> Sinus bradycardia Otherwise normal ECG
== END 2018-12-05 03:30 | disposition home or self-care (01) ==
LOC: H.ER 22:28
DX: J11.1 Influenza due to unidentified influenza virus with other respiratory manifestations (principal); E11.9 Type 2 diabetes mellitus without complications; I10 Essential (primary) hypertension; Z79.84 Long term (current) use of oral hypoglycemic drugs; Z86.73 Personal history of transient ischemic attack (TIA), and cerebral infarction without residual deficits; I25.10 Atherosclerotic heart disease of native coronary artery without angina pectoris
CPT/HCPCS: 71046; 82948; 87804; 93005; 96372; 99283; J1885